=== PATIENT | male | born 1955 | race Caucasian/White ===

== ENCOUNTER 2018-05-02 11:10 | Emergency (ER) | payer SELFPAY ==
[~2018-05-02] VITALS: Ht 180.3 cm; Wt 82.0 kg
[2018-05-02 11:14] VITALS: BP 117/59
== END 2018-05-02 16:40 | disposition home or self-care (01) ==
LOC: ER 11:11
DX: M25.552 Pain in left hip (principal); Z98.890 Other specified postprocedural states
CPT/HCPCS: 99281